=== PATIENT | female | born 1960 | race Caucasian/White ===

== ENCOUNTER 2016-08-26 21:53 | Emergency (ER) | payer BC ==
--- NOTE | 2016-08-26 22:15 | EDM.PDOC ---
ED HPI Trauma - General Chief Complaint: Upper Extremity Injury/Pain Stated Complaint: [facility] Time Seen by Provider: 08/26/16 21:57 Source: Reports: Patient, RN notes reviewed History Limitations: Reports: No limitations - History of Present Illness INITIAL COMMENTS - FREE TEXT/NARRATIVE: The patient states that today is her birthday. She consumes several alcoholic beverages at a birthday democrat at her house. She states that someone was removing her boot, when she fell backwards onto her left upper extremity, around 21:15. She experienced pain in her left elbow. EMS was called and placed her into a Styrofoam splint. Here in the ED, the patient denies pain to the elbow. No prior left elbow injury. The patient is otherwise uninjured. Allergies/ADRs: Allergies Sulfa (Sulfonamide Antibiotics) Allergy (Verified 08/26/16 22:01) Other Home Medications: Ambulatory Orders Hydrocodone/Acetaminophen [Orient 5-325 Tablet] 1 - 2 tab PO Q6H PRN #14 tablet 08/27/16 Past Medical History - Past Health History Medical/Surgical History: Denies Medical/Surgical History Social & Family History - Tobacco Use Smoking Status *Q: Current Every Day Smoker Years of Tobacco use: 40 Packs/Tins Daily: 0.3 - Alcohol Use Alcohol Use History: Yes Alcohol Use Frequency: Socially - Recreational Drug Use Recreational Drug Use: No - Living Situation & Occupation Living situation: Reports: single, other (with friend) 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[place]) Review of Systems - Review of Systems Review Of Systems: See Below Constitutional: Reports: no symptoms Eyes: Reports: no symptoms Ears: Reports: no symptoms Nose: Reports: no symptoms Mouth/Throat: Reports: no symptoms Respiratory: Reports: No Symptoms Cardiovascular: Reports: no symptoms GI/Abdominal: Reports: No symptoms Genitourinary: Reports: no symptoms Musculoskeletal: Reports: no symptoms Skin: Reports: no symptoms Neurological: Reports: No Symptoms Psychiatric: Reports: no symptoms Trauma Exam - Physical Exam Exam: See Below Exam Limited By: No limitations General Appearance: Reports: alert, WD/WN, no apparent distress Head: Reports: atraumatic, normocephalic Extremities: Reports: other (No visible abnormality to the left elbow, such as deformity, swelling, erythema, ecchymosis, or abrasion. No tenderness to palpation of the elbow. No pain induced with flexion/extension, or supination/ pronation of the forearm. Neurovascular status of the LUE is intact.) ED TRAUMA EXTREMITY PROCEDURES - Joint Reduction Site: other (Left elbow) Sedation: other (None) Pre-procedure NV status: normal Post-procedure NV status: normal Technique: traction/counter traction Number of Attempts: 1 Joint Reduction Complications: No - Splinting Left Upper Extremity Splint site: Lt elbow Pre-procedure NV status: normal Post-procedure NV status: normal Splint material: fiberglass Splint design: gutter Applied & form fitted by: provider Provider post-splint application NV check: NV status normal, good position Complications: No Course - Vital Signs Last Recorded V/S: Last Vital Signs Temp 36.4 C 08/26/16 22:02 Pulse 80 08/27/16 00:45 Resp 20 08/27/16 00:45 BP 113/75 08/27/16 00:45 Pulse Ox 93 L 08/27/16 00:45 - Orders/Labs/Meds Orders: Active Orders 24 hr Category Date Time Status Elbow Min 3V Lt [CR] Stat Exams 08/26/16 22:10 Taken Elbow wo Cont Lt [CT] Stat Exams 08/26/16 22:34 Taken DME for Discharge [COMM] Stat Oth 08/27/16 00:25 Ordered - Radiology Interpretation Free Text/Narrative:: 4-view radiographs of the left elbow appear to demonstrate a lateral condylar comminuted fracture with radial head dislocation. The radius appears to line up appropriately when the elbow was flexed at 90. Formal read per the Radiologist pending. CT of the left upper extremity without contrast is read by [facility] as "Elbow dislocation. Humerus is anterior in location relative to the radius and ulna. There are multiple small cortical fragments." - Re-Assessments/Exams Free Text/Narrative Re-Assessment/Exam: 08/26/16 22:[address] Torres at 22:29. He is recommending that we splint the elbow at 90, then obtain a CT scan of the elbow without contrast, then have the patient followup in his clinic tomorrow morning. 08/27/16 00:09 The joint appear to be in good position on the radiograph when the elbow was flexed at 90, however, now that the arm is splinted, the CT scan is showing a dislocation. 08/27/16 00:23 The splint was removed. Gentle posterior traction was applied to the distal humerus while anterior traction was applied to the fingers, with an obvious palpable and auditory reduction of the elbow. The splint was reapplied. The patient has repeatedly refused pain medication. Departure - Departure Time of Disposition: 00:26 Disposition: Home, Self-Care 01 Condition: fair Clinical Impression: Left elbow fracture, Dislocation of left elbow Prescriptions: Hydrocodone/Acetaminophen [Orient 5-325 Tablet] 1 - 2 tab PO Q6H PRN #14 tablet PRN Reason: Pain (Severe 7-10) Instructions: Elbow Fracture, Simple Referrals: PCP,None [Primary Care Provider] - Bo Torres MD [Physician] - Forms: ED Department Discharge Additional Instructions: You were seen in the emergency room after falling and injuring your left elbow. X-rays show that you have broken your left elbow. You have been placed in an arm splint and sling. Ice and elevate your left elbow is much as possible for the next for 8 hours. Take [id number] ibuprofen 2-3 tablets (400-600 mg) every 8 hours, with food, as needed for pain. You may take 1 to 2 tablets of the pain medicine Orient up to every 6 hours, as needed for pain not relieved by ibuprofen. If you take Orient, do not drive or operate heavy machinery for 12 hours afterwards. Orient will likely cause constipation, so consider taking a stool softener. Followup with the Orthopedic Surgeon Dr. Torres today, 08/27/2016. If any other problems, please do not hesitate to return to the ER. - My Orders Last 24 Hours: My Active Orders 08/26/16 22:10 Elbow Min 3V Lt [CR] Stat 08/26/16 22:34 Elbow wo Cont Lt [CT] Stat 08/27/16 00:25 DME for Discharge [COMM] Stat - Assessment/Plan Last 24 Hours: My Active Orders 08/26/16 22:10 Elbow Min 3V Lt [CR] Stat 08/26/16 22:34 Elbow wo Cont Lt [CT] Stat 08/27/16 00:25 DME for Discharge [COMM] Stat
[2016-08-27 02:43] VITALS: BP 113/75
--- NOTE | 2016-08-27 08:54 | CR ---
Left elbow: Four views of the left elbow were obtained. Comparison: No previous elbow study. Multiple small bony fragments are seen around the elbow. Several views show dislocation. Impression: 1. Elbow dislocation. 2. Multiple bony fragments seen around the elbow, most of these appear to be old. Diagnostic code #3
--- NOTE | 2016-08-27 09:28 | CT ---
CT left elbow Technique: Multiple axial sections through the left elbow are obtained. Reconstructed coronal and sagittal images were reviewed. Comparison: Previous plain film study performed earlier on the same day. Findings: Humerus is dislocated anteriorly in relation to the ulna and radius. Multiple small cortical fragments are seen around the elbow without definite acute donor sites with findings raising the possibility of old fracture fragments from previous dislocation. Joint effusion is seen. Impression: 1. Elbow dislocation as described above. 2. Multiple small cortical fragments possibly from old fractures due to previous dislocation. Please correlate if patient has had chronic injury to this elbow. Agree with preliminary report issued by [facility] (preliminary report dictated on 08/27/16, 12:43 AM Central Time) Diagnostic code #3 MTDD
== END 2016-08-27 00:43 | disposition home or self-care (01) ==
LOC: JD.ED 21:53
DX: S42.452A Displaced fracture of lateral condyle of left humerus, initial encounter for closed fracture (principal); W19.XXXA Unspecified fall, initial encounter; Z88.2 Allergy status to sulfonamides; F17.210 Nicotine dependence, cigarettes, uncomplicated
CPT/HCPCS: 24600; 29125; 73080-26-LT; 73080-LT; 73200-26-LT; 73200-LT; 99283; 99285-25

== ENCOUNTER 2016-08-27 11:32 | Day surgery (SDC) | payer BC ==
[2016-08-27] MEDS ORDERED: Ondansetron 4 MG/2 ML SDV ONE (11:55)
[2016-08-27] MEDS ORDERED: fentaNYL 250 MCG/5 ML SDV ONE (11:55)
[2016-08-27] MEDS ORDERED: Lidocaine 1% 4 ML ONE (11:55)
[2016-08-27] MEDS ORDERED: Propofol 200 MG/20 ML SDV ONE (11:55)
[2016-08-27] MEDS ORDERED: Midazolam 1 MG/ML 2 ML SDV ONE (11:55)
--- NOTE | 2016-08-27 12:11 | PCM.PREANE ---
Preanesthetic Assessment - Anesthesia/Transfusion/Family Hx Anesthesia History: Prior Anesthesia Without Reaction Family History of Anesthesia Reaction: No Transfusion History: No Prior Transfusion(s) - Review of Systems General: No Symptoms Pulmonary: No Symptoms Cardiovascular: No Symptoms Gastrointestinal: No symptoms Neurological: No Symptoms Other: Reports: None - Physical Assessment NPO Status Date: 08/26/16 NPO Status Time: 19:00 (sip of water this am) Pulse: 72 O2 Sat by Pulse Oximetry: 95 Respiratory Rate: 16 Blood Pressure: 157/95 Temperature: 97.9 F Height: 5 ft 7 in Weight: 100 kg ASA Class: 2 Mental Status: Alert & Oriented x3 Airway Class: Mallampati = 1 Dentition: Reports: Normal Dentition Thyro-Mental Finger Breadths: 3 Mouth Opening Finger Breadths: 3 ROM/Head Extension: Full Lungs: Clear to auscultation, Normal respiratory effort Cardiovascular: Regular Rate, Regular Rhythm, No Murmurs - Allergies Allergies/Adverse Reactions: Allergies Allergy/AdvReac Type Severity Reaction Status Date / Time Sulfa (Sulfonamide Allergy Other Verified 08/26/16 22:01 Antibiotics) - Blood Blood Available: No - Acknowledgements Anesthesia Type Planned: General Anesthesia Pt an Appropriate Candidate for the Planned Anesthesia: Yes Alternatives and Risks of Anesthesia Discussed w Pt/Guardian: Yes Pt/Guardian Understands and Agrees with Anesthesia Plan: Yes PreAnesthesia Questionnaire - Past Health History Medical/Surgical History: Denies Medical/Surgical History Cardiovascular History: Reports: None Respiratory History: Reports: None Gastrointestinal History: Reports: None Musculoskeletal History: Reports: None Neurological History: Reports: None Psychiatric History: Reports: None Endocrine/Metabolic History: Reports: Obesity/BMI 30+ Oncologic (Cancer) History: Reports: None - Past Surgical History GI Surgical History: Reports: Other (see below) (PILONIDAL CYST) - History Comment History Comment: VITAMIN D FOR HOME MEDS - SUBSTANCE USE Smoking Status *Q: Current Every Day Smoker Tobacco Use Within Last Twelve Months: Cigarettes Second Hand Smoke Exposure: Yes Days Per Week of Alcohol Use: 2 Number of Drinks Per Day: 2 Total Drinks Per Week: 4 Date of Last Drink: 08/26/16 Time of Last Drink: 19:30 Recreational Drug Use History: No - HOME MEDS Home Medications: Home Meds Hydrocodone/Acetaminophen [[place] 5-325 Tablet] 1 - 2 tab PO Q6H PRN #14 tablet 08/27/16 [Rx] - CURRENT (IN HOUSE) MEDS Current Meds: Current Medications Discontinued Medications Fentanyl (Sublimaze) Confirm Administered Dose 250 mcg .ROUTE .STK-MED ONE Stop: 08/27/16 11:56 Lidocaine HCl (Xylocaine-Mpf 1%) Confirm Administered Dose 4 mls @ as directed .ROUTE .STK-MED ONE Stop: 08/27/16 11:56 Midazolam HCl (Versed 1 Mg/Ml) Confirm Administered Dose 2 mg .ROUTE .STK-MED ONE Stop: 08/27/16 11:56 Ondansetron HCl (Zofran) Confirm Administered Dose 4 mg .ROUTE .STK-MED ONE Stop: 08/27/16 11:56 Propofol (Diprivan 20 Ml) Confirm Administered Dose 200 mg .ROUTE .STK-MED ONE Stop: 08/27/16 11:56
[2016-08-27] MEDS ORDERED: Ondansetron 4 MG/2 ML SDV IVPUSH PRN (12:38)
[2016-08-27] MEDS ORDERED: Meperidine PF 50 MG/ML Syringe IVPUSH PRN (12:38)
[2016-08-27] MEDS ORDERED: HYDROmorphone 0.5 MG/0.5 ML Syringe IVPUSH PRN (12:45)
[2016-08-27] MEDS ORDERED: fentaNYL 100 MCG/2 ML SDV IVPUSH PRN (12:45)
--- NOTE | 2016-08-27 13:05 | PCM.POSTAN ---
POST ANESTHESIA ASSESSMENT - MENTAL STATUS Mental Status: alert, oriented - VITAL SIGNS Pulse Rate: 72 SaO2: 95 Resp Rate: 8 Blood Pressure: 118/82 Temperature: 98.7 F - RESPIRATORY Respiratory Status: respiratory rate WNL, airway patent, O2 saturation stable, supplemental oxygen - CARDIOVASCULAR CV Status: pulse rate WNL, blood pressure stable - GASTROINTESTINAL GI Status: no symptoms - PAIN Pain Score: 0 - POST OP HYDRATION Hydration Status: adequate & stable
--- NOTE | 2016-08-27 13:21 | CR ---
Left wrist: Multiple fluoroscopic spot views were obtained of the left wrist as well as of the left elbow. Comminuted distal radial fracture is seen as well as dislocated elbow. Final films show better reduction of the distal radial fracture with plaster cast in place. Previous elbow dislocation has also been reduced. Fluoroscopy time given is 24.7 seconds. Impression: 1. Reduction of previous findings as noted above. Diagnostic code #2
[2016-08-27 14:51] VITALS: BP 141/87
--- NOTE | 2016-08-27 21:15 | PCM.OPNOTE ---
- General Post-Op/Procedure Note Date of Surgery/Procedure: 08/27/16 Operative Procedure(s): closed reduction and splinting of left posterior elbow dislocation and comminuted intra-articular left distal radius fracture Pre Op Diagnosis: left posterior elbow dislocation and left comminuted distal radius fracture Post-Op Diagnosis: Same Anesthesia Technique: General LMA Primary Surgeon: Bo Torres Anesthesia Provider: Vivi Kaur Recoater: Deepika Yi EBL in mLs: 0 Complications: None Condition: Good Free Text/Narrative:: Intake & Output 08/27/16 08/27/16 08/27/16 06:59 14:59 22:59 Intake Total 50 Balance 50
--- NOTE | 2016-08-27 22:04 | OR ---
DATE OF OPERATION: 08/27/2016 SURGEON: Bo Torres MD OPERATION PERFORMED: Closed reduction and splinting of left posterior elbow dislocation and comminuted intra-articular left distal radius fracture. PREOPERATIVE DIAGNOSIS: Left posterior elbow dislocation and left comminuted distal radius fracture. POSTOPERATIVE DIAGNOSIS: Left posterior elbow dislocation and left comminuted distal radius fracture. ANESTHESIA: Technique, general LMA. ANESTHESIA PROVIDER: Vivi Kaur. MANAGER MARKETING COMMUNICATIONS: Deepika Yi M.D. ESTIMATED BLOOD LOSS: Zero mL. COMPLICATIONS: None. CONDITION: Stable. DESCRIPTION OF PROCEDURE: The patient was identified in the preop holding area. Proper site was marked and identified by the surgeon. The patient was taken back to the operating theater where after adequate anesthesia, fluoroscopic views were taken of the left elbow showing us complex left posterior elbow dislocation as well as a comminuted intra-articular left distal radius fracture. The patient was noted to have deformity and pain and click of the left distal radius, but at that time fluoroscopic views were not obtained and it was awaited till we got into surgery. At this time, it was found the patient did have a comminuted intra- articular left distal radius fracture. At this time, it was decided we reduce both the elbow and the distal radius at this time. Under closed reduction method, traction was applied to the left elbow and there was a palpable reduction of the left posterior elbow dislocation. At this time, there was found to be a comminuted intra-articular left distal radius fracture and traction was applied and there was adequate reduction of the left intra- articular distal radius fracture, but it was noted to be highly comminuted and the radial styloid piece did not fully reduce. At this time, a sugar-tong plaster splint along with posterior plaster splint were applied to the left upper extremity and these were well-molded. Once these were set, the patient was placed in a sling and was sent to the PACU in stable condition. We will follow up in clinic for possible operative fixation of the distal radius. MMODAL /[id number]
--- NOTE | 2016-08-28 15:18 | PCM48HPAN ---
Post Anesthesia Note - EVALUATION WITHIN 48HRS OF ANESTHETIC Vital Signs in Normal Range: Yes Patient Participated in Evaluation: No (visit with nurse) Respiratory Function Stable: Yes Airway Patent: Yes Cardiovascular Function Stable: Yes Hydration Status Stable: Yes Pain Control Satisfactory: Yes Nausea and Vomiting Control Satisfactory: Yes Mental Status Recovered: Yes
== END 2016-08-27 14:35 | disposition home or self-care (01) ==
LOC: JD.SDS 11:32
PROVIDERS: ATTEND Orthopaedic Surgery
DX: S53.125A Posterior dislocation of left ulnohumeral joint, initial encounter (principal); S52.502A Unspecified fracture of the lower end of left radius, initial encounter for closed fracture; Z88.2 Allergy status to sulfonamides; Z79.899 Other long term (current) drug therapy; F17.210 Nicotine dependence, cigarettes, uncomplicated; W19.XXXA Unspecified fall, initial encounter
CPT/HCPCS: 24600; 25605; 76000; J2250; J2405; J3010; 01730; J2704

== ENCOUNTER 2016-09-05 06:03 | Day surgery (SDC) | payer BC ==
[~2016-09-05 06:03] MED LIST: Lactated Ringers 1,000 ML IV SCH; Lidocaine 1%/Sod Bicarbonate in NS 8.4% 1 ML Syringe IV PRN; Sodium Chloride 0.9% 10 ML Syringe FLUSH PRN
--- NOTE | 2016-09-05 07:00 | PCM.PREANE ---
Preanesthetic Assessment - Anesthesia/Transfusion/Family Hx Anesthesia History: Prior Anesthesia Without Reaction Family History of Anesthesia Reaction: No Transfusion History: No Prior Transfusion(s) - Review of Systems General: No Symptoms Pulmonary: No Symptoms Cardiovascular: No Symptoms Gastrointestinal: No symptoms Neurological: No Symptoms - Physical Assessment NPO Status Date: 09/04/16 NPO Status Time: 00:00 Pulse: 60 O2 Sat by Pulse Oximetry: 94 Respiratory Rate: 16 Blood Pressure: 125/82 Temperature: 36.7 C Vital Signs: Last Vital Signs Temp 36.7 C 09/05/16 06:10 Pulse 60 09/05/16 06:10 Resp 16 09/05/16 06:10 BP 125/82 09/05/16 06:10 Pulse Ox 94 L 09/05/16 06:10 Height: 1.7 m Weight: 100 kg ASA Class: 2 Mental Status: Alert & Oriented x3 Airway Class: Mallampati = 2 Dentition: Reports: Normal Dentition, [place](s), Missing Tooth/Teeth Thyro-Mental Finger Breadths: 3 Mouth Opening Finger Breadths: 3 ROM/Head Extension: Full Lungs: Clear to auscultation, Normal respiratory effort, Decreased breath sounds Cardiovascular: Regular Rate, Regular Rhythm - Allergies Allergies/Adverse Reactions: Allergies Allergy/AdvReac Type Severity Reaction Status Date / Time Sulfa (Sulfonamide Allergy Other Verified 09/04/16 16:16 Antibiotics) - Blood Blood Available: No Product(s) Available: None - Anesthesia Plan Pre-Op Medication Ordered: None - Acknowledgements Anesthesia Type Planned: General Anesthesia Pt an Appropriate Candidate for the Planned Anesthesia: Yes Alternatives and Risks of Anesthesia Discussed w Pt/Guardian: Yes Pt/Guardian Understands and Agrees with Anesthesia Plan: Yes PreAnesthesia Questionnaire - Past Health History Medical/Surgical History: Denies Medical/Surgical History Cardiovascular History: Reports: None Respiratory History: Reports: None Gastrointestinal History: Reports: None Musculoskeletal History: Reports: None Neurological History: Reports: None Psychiatric History: Reports: None Endocrine/Metabolic History: Reports: Obesity/BMI 30+ Oncologic (Cancer) History: Reports: None - Past Surgical History GI Surgical History: Reports: Other (see below) (PILONIDAL CYST) - History Comment History Comment: VITAMIN D FOR HOME MEDS - SUBSTANCE USE Smoking Status *Q: Current Every Day Smoker Tobacco Use Within Last Twelve Months: Cigarettes Second Hand Smoke Exposure: Yes Days Per Week of Alcohol Use: 2 Number of Drinks Per Day: 2 Total Drinks Per Week: 4 Recreational Drug Use History: No - HOME MEDS Home Medications: Home Meds Hydrocodone/Acetaminophen [[place] 5-325] 1 - 2 tab PO Q6H PRN #30 tablet [Rx] - CURRENT (IN HOUSE) MEDS Current Meds: Current Medications Lactated Ringer's (Ringers, Lactated) 1,000 mls @ 125 mls/hr IV ASDIRECTED TK Stop: 09/05/16 23:00 Lidocaine/Sodium Bicarbonate (Buffered Lidocaine 1% In Ns 8.4%) 0.25 ml IV ONETIME PRN PRN Reason: Prior to IV Start Stop: 09/05/16 18:00 Sodium Chloride (Saline Flush) 10 ml FLUSH ASDIRECTED PRN PRN Reason: Keep Vein Open Stop: 09/05/16 18:00
[2016-09-05] MEDS ORDERED: Lidocaine 1% 4 ML ONE (07:12)
[2016-09-05] MEDS ORDERED: Ondansetron 4 MG/2 ML SDV ONE (07:12)
[2016-09-05] MEDS ORDERED: Propofol 200 MG/20 ML SDV ONE (07:12)
[2016-09-05] MEDS ORDERED: fentaNYL 250 MCG/5 ML SDV ONE (07:12)
[2016-09-05] MEDS ORDERED: Midazolam 1 MG/ML 2 ML SDV ONE (07:12)
[2016-09-05] MEDS ORDERED: Bupivacaine 0.25% 10 ML SDV ONE (07:16)
[2016-09-05] MEDS ORDERED: ceFAZolin 1 GM Vial ONE (07:17)
[2016-09-05] MEDS ORDERED: ePHEDrine 50 MG/ML SDV ONE (07:57)
[2016-09-05] MEDS ORDERED: Ketorolac 30 MG/ML SDV ONE (08:41)
[2016-09-05] MEDS ORDERED: fentaNYL 100 MCG/2 ML SDV IVPUSH PRN (09:39)
--- NOTE | 2016-09-05 09:40 | PCM.POSTAN ---
POST ANESTHESIA ASSESSMENT - MENTAL STATUS Mental Status: alert, oriented - VITAL SIGNS Pulse Rate: 71 SaO2: 96 Resp Rate: 10 Blood Pressure: 122/72 Temperature: 37.0 C - RESPIRATORY Respiratory Status: respiratory rate WNL, airway patent, O2 saturation stable, supplemental oxygen - CARDIOVASCULAR CV Status: pulse rate WNL, blood pressure stable - GASTROINTESTINAL GI Status: no symptoms - PAIN Pain Score: 0 - POST OP HYDRATION Hydration Status: adequate & stable - OBSERVATIONS Free Text/Narrative:: no anesthesia complications noted
[2016-09-05] MEDS ORDERED: HYDROmorphone 0.5 MG/0.5 ML Syringe IVPUSH PRN (10:40)
[2016-09-05 10:44] VITALS: BP 135/76
--- NOTE | 2016-09-05 11:13 | CR ---
Left wrist: Multiple fluoroscopic spot views were obtained of the left wrist utilizing C-arm device. Distal radial fracture is seen. Study shows reduction and fixation of previous fracture. Fluoroscopy time given as 104.9 seconds. Single lateral view was obtained of the elbow which shows no dislocation on this one view. Impression: 1. Study shows placement of plate and screws affixing previous radial fracture. Diagnostic code #2
--- NOTE | 2016-09-11 23:09 | PCM.OPNOTE ---
- General Post-Op/Procedure Note Date of Surgery/Procedure: 09/05/16 Operative Procedure(s): open reduction internal fixation of left intra- articular distal radius fracture and percutaneous pin fixation of distal radial ulnar joint instability Pre Op Diagnosis: 3 or greater parts intra-articular left distal radius fracture with ulnar styloid fracture Post-Op Diagnosis: Same with DRUJ instability Anesthesia Technique: General LMA, Local Primary Surgeon: Bo Torres Anesthesia Provider: Renzo Rodrigues Mirror Framer: Luz Marina Stanley EBL in mLs: 15 Complications: None Condition: Good
--- NOTE | 2016-09-11 23:47 | OR ---
DATE OF OPERATION: 09/05/2016 SURGEON: Bo Torres MD OPERATION PERFORMED: Open reduction, internal fixation of left 3 or greater part intra-articular distal radius fracture and percutaneous pin fixation at distal radioulnar joint instability. PREOPERATIVE DIAGNOSIS: Three or greater parts intra-articular left distal radius fracture with ulnar styloid fracture. POSTOPERATIVE DIAGNOSIS: Three or greater parts intra-articular left distal radius fracture with ulnar styloid fracture with distal radioulnar joint instability. ANESTHESIA: General LMA with local. ANESTHESIA PROVIDER: Renzo Rodrigues CRNA. GLASS ROBOT OPERATOR: Luz Marina Stanley PA-C. ESTIMATED BLOOD LOSS: Less than 15 mL. COMPLICATIONS: None. CONDITION: Stable. DESCRIPTION OF PROCEDURE: The patient was identified in the preop holding area, proper side was marked and identified by the surgeon. The patient was taken back to the operating theater where after adequate anesthesia, the patient's left upper extremity had a nonsterile tourniquet applied, and it was then sterilely prepped and draped in the usual sterile fashion. OR time-out was performed. The patient received 2 g IV Ancef. At this time, left upper extremity was exsanguinated. Tourniquet was insufflated at 250 mmHg. Standard volar approach of Baljinder was then utilized and taken down to the FCR tendon sheath. The FCR tendon sheath was then placed ulnarly to protect the median nerve. Floor of the tendon sheath was then opened. The flexor pollicis longus was then identified and was retracted ulnarly as well to protect the median nerve. The pronator quadratus was then elevated off the distal radius. Fracture site was identified and was curetted and rongeured of all hematoma. Using a [place] elevator, I was able to do a provisional reduction along with traction and a K-wire was placed through the ulnar styloid to hold provisional reduction. At this time, there was noted to be a depressed ulnar-sided radial piece, so a K-wire was placed across the joint surface to tamp up that piece and hold in place while the plate was placed. The [place] distal volar radial locking plate was then placed under direct visualization in a proper position and K-wire was used to hold it in place. At this time, a nonlocking screw was placed both distally and in the shaft and was found to be in adequate position. Next, 3 more locking screws were placed distally under direct visualization making sure to be as close to bicortical as possible. At this time, 2 wires were placed after this, and then 3 nonlocking 2.7 screws were placed in the shaft. It was found to have adequate fixation on both AP, lateral, and 23-degree lateral views. At this time, it was decided that the patient had very poor bone quality and that Vitoss would be used. At this time, Vitoss was then placed around the plate to help with healing potential. Adequate saline was then irrigated through the wound. 2-0 Vicryl was used for closure of the tendon sheath, 3-0 Vicryl was used subcutaneously, and running 4-0 Monocryl was used subcuticularly. Dermabond was applied. Lateral of the elbow was also taken showing that the previous elbow dislocation remained reduced. At this time, the DRUJ was tested and was found to be unstable. The radius and ulnar were then placed colinear and 0.062 K-wire was placed from the ulnar side into the radius and was found to have adequate fixation with stability of the DRUJ. At this time, a splint and sterile dressing were applied. The patient tolerated the procedure well and was sent to PACU in stable condition. NIKKO /[id number]
== END 2016-09-05 10:50 | disposition home or self-care (01) ==
LOC: JD.SDS 06:03
PROVIDERS: ATTEND Orthopaedic Surgery
PROC: 0PSJ04Z Reposition Left Radius with Internal Fixation Device, Open Approach (ICD-10-PCS; principal; 2016-09-05)
PROC: 0PSL04Z Reposition Left Ulna with Internal Fixation Device, Open Approach (ICD-10-PCS; 2016-09-05)
DX: S52.182A Other fracture of upper end of left radius, initial encounter for closed fracture (principal); S52.612A Displaced fracture of left ulna styloid process, initial encounter for closed fracture; W18.30XA Fall on same level, unspecified, initial encounter
CPT/HCPCS: 25609; 25651; 76000; C1713; C1776; J0690; J1885; J2250; J2405; J3010; J7120; 01740; J2704

== ENCOUNTER 2021-11-07 10:29 | Emergency (ER) | payer BC ==
[2021-11-07 10:47] VITALS: BP 126/80; PULSE 76
[2021-11-07] MEDS ORDERED: Sodium Chloride 0.9% 10 ML Syringe FLUSH PRN (11:03)
[2021-11-07] MEDS ORDERED: Sodium Chloride 0.9% 1,000 ML IV SCH (11:15)
== END 2021-11-07 12:26 | disposition home or self-care (01) ==
LOC: JD.ED 10:29
DX: R55 Syncope and collapse (principal); E86.0 Dehydration; E66.9 Obesity, unspecified; Z68.33 Body mass index [BMI] 33.0-33.9, adult; Z88.2 Allergy status to sulfonamides
CPT/HCPCS: 36415; 80053; 83735; 84484; 85025; 93005; 96360; 99284; J3490; J7030; 93010; 99283

== ENCOUNTER 2022-10-13 22:01 | Emergency (ER) | payer BC ==
[2022-10-13] MEDS ORDERED: Sodium Chloride 0.9% 10 ML Syringe FLUSH PRN (22:19)
[2022-10-13 22:37] LABS: APPEARANCE,URINE CLEAR (Clear); BILIRUBIN,URINE NEGATIVE (Negative); COLOR,URINE LIGHT YELLOW (Yellow); GLUCOSE,URINE NEGATIVE (Negative); KETONES,URINE 2+ (Negative); LEUKOCYTE ESTERASE,URINE NEGATIVE (Negative); NITRITE,URINE NEGATIVE (Negative); OCCULT BLOOD,URINE 2+ (Negative); PH,URINE 7.5 (5.0-8.0); PROTEIN,URINE 1+ (Negative); UROBILINOGEN,URINE 0.2 (0.2-1.0)
[2022-10-13 22:37] LABS: BASOPHILS ABSOLUTE AUTO 0.03 K/mm3 (0.01-0.08); BASOPHILS PERCENT AUTO 0.3 % (0.1-1.2); EOSINOPHILS ABSOLUTE AUTO 0.05 K/mm3 (0.04-0.36); EOSINOPHILS PERCENT AUTO 0.4 (0.7-5.8); HEMATOCRIT 45.9 % (34.1-44.9); HEMOGLOBIN 15.1 gm/dl (11.2-15.7); IMMATURE GRAN ABSOLUTE AUTO 0.04 K/mm3 (0.00-0.10); IMMATURE GRAN PERCENT AUTO 0.4 % (<=1.0); LYMPHOCYTES ABSOLUTE AUTO 1.99 K/mm3 (1.18-3.74); LYMPHOCYTES PERCENT AUTO 17.7 % (19.3-51.7); MEAN CORPUSCULAR HEMOGLOBIN 28.8 pg (25.6-32.2); MEAN CORPUSCULAR HGB CONC 32.9 g/dl (32.2-35.5); MEAN CORPUSCULAR VOLUME 87.4 fl (79.4-94.8); MEAN PLATELET VOLUME 8.5 fl (9.4-12.3); MONOCYTES ABSOLUTE AUTO 0.97 K/mm3 (0.24-0.36); MONOCYTES PERCENT AUTO 8.6 % (4.7-12.5); NEUTROPHILS ABSOLUTE AUTO 8.14 K/mm3 (1.56-6.13); NEUTROPHILS PERCENT AUTO 72.6 % (34.0-71.1); PLATELET COUNT,PLT 305 K/mm3 (182-369); RED BLOOD CELL COUNT 5.25 M/mm3 (3.98-5.22); WHITE BLOOD CELL COUNT,WBC 11.22 K/mm3 (3.98-10.04)
[2022-10-13 22:54] LABS: AMORPHOUS SEDIMENT,URINE MODERATE /hpf (NOT SEEN); BACTERIA,URINE FEW /hpf (FEW); MUCUS,URINE RARE /hpf (FEW); RBC,URINE 20-30 /hpf (0-5); SQUAMOUS EPITHELIAL CELLS,UR 0-5 /hpf (0-5); WBC,URINE 0-5 /hpf (0-5)
[2022-10-13 22:57] LABS: A/G RATIO 0.9 (1-2); ALBUMIN 4.2 g/dl (3.4-5.0); ANION GAP 14.2 (5-15); BILIRUBIN TOTAL 0.4 mg/dL (0.2-1.0); CALCIUM 10.8 mg/dL (8.5-10.1); CREATININE 1.2 mg/dL (0.55-1.02); EST CRCL DRUG DOSING (CG) 43.18 mL/min; POTASSIUM,K 4.2 mEq/L (3.5-5.1)
[2022-10-14] MEDS ORDERED: Ketorolac 30 MG/ML SDV IVPUSH ONE (00:27)
[2022-10-14 00:56] VITALS: BP 157/92; PULSE 75
== END 2022-10-14 00:54 | disposition home or self-care (01) ==
LOC: JD.ED 22:01
DX: N23 Unspecified renal colic (principal); K57.92 Diverticulitis of intestine, part unspecified, without perforation or abscess without bleeding; E66.9 Obesity, unspecified; F17.210 Nicotine dependence, cigarettes, uncomplicated; Z68.36 Body mass index [BMI] 36.0-36.9, adult; Z88.2 Allergy status to sulfonamides
CPT/HCPCS: 36415; 74022; 74176; 80053; 81001; 85025; 96374; 99284; J1885; J3490; 99283